=== PATIENT | female | born 1995 | race Two or more races ===

== ENCOUNTER 2019-03-01 05:49 | Emergency (ER) | payer MEDICAID ==
[~2019-03-01] VITALS: Ht 175.3 cm; Wt 64.9 kg
[2019-03-01 07:34] LABS: Basophils # (auto) 0 uL; Basophils % (auto) 0.6 % (0.0-2.0); Eosinophils # (auto) 0 uL; Eosinophils % (auto) 0.1 % (0.0-7.0); Hematocrit 42.2 % (36.0-46.0); Hemoglobin 13.9 g/dL (12.2-16.2); Lymphocytes % (auto) 11.7 % (10.0-50.0); Mean Corpuscular Hemoglobin 29.1 pg (28.0-32.0); Mean Corpuscular Hgb Conc. 32.9 g/dL (32.0-36.0); Mean Corpuscular Volume 88.4 fL (80.0-100.0); Monocytes # (auto) 0.4 uL; Monocytes % (auto) 5.3 % (0.0-12.0); Neutrophils % (auto) 82.3 % (37.0-80.0); Platelet Count (auto) 184 10^3/uL (140-450); Red Blood Cells 4.77 10^6/uL (4.0-5.20); Red Cell Distribution Width 12.8 % (11.8-14.3); White Blood Cell 8.5 10^3/uL (4.4-10.8)
[2019-03-01 07:53] LABS: Potassium 3.6 mmol/L (3.5-5.1)
[2019-03-01 07:57] LABS: Albumin 4.1 g/dL (3.4-5.0); BUN/Creatinine Ratio 11.3; Calcium 9.2 mg/dL (8.5-10.1)
[2019-03-01 07:59] LABS: Salicylate < 1.7 mg/dL (2.8-20.0)
[2019-03-01 08:00] LABS: Bilirubin, Total 1.3 mg/dL (0.2-1.0)
[2019-03-01 08:08] LABS: Acetaminophen < 2.0 ug/mL (10-30)
[2019-03-01 09:45] LABS: Urine Bacteria NONE SEEN /hpf (None Seen); Urine Blood 2+ /uL (Negative); Urine WBC <1 /hpf (0 - 5)
[2019-03-01 10:06] LABS: Alcohol, Urine < 3.0 mg/dL (0-5); Amphetamine Screen, Urine NEGATIVE (NEGATIVE); Barbiturate Scree,Urine NEGATIVE (NEGATIVE); Benzodiazephine Screen, Urine NEGATIVE (NEGATIVE); Cannabinoid Screen, Urine NEGATIVE (NEGATIVE); Cocaine Screen, Urine NEGATIVE (NEGATIVE); Opiate Scree,Urine NEGATIVE (NEGATIVE); Phencyclidine Screen, Urine NEGATIVE (NEGATIVE)
[2019-03-01 11:30] VITALS: BP 124/80
== END 2019-03-01 11:39 | disposition home or self-care (01) ==
LOC: ER 05:49 → EDBD 05:49 → ER 11:39
DX: S40.022A Contusion of left upper arm, initial encounter (principal); S40.021A Contusion of right upper arm, initial encounter; S10.93XA Contusion of unspecified part of neck, initial encounter; F20.9 Schizophrenia, unspecified; X58.XXXA Exposure to other specified factors, initial encounter; Y93.89 Activity, other specified; Y92.89 Other specified places as the place of occurrence of the external cause; Y99.8 Other external cause status
CPT/HCPCS: 36415; 80053; 80307; 80329; 81001; 84702; 85025